=== PATIENT | female | born 2000 | race Two or more races ===

== ENCOUNTER 2024-11-15 21:14 | Observation (INO) | payer BC, SELFPAY ==
[2024-11-15 21:25] VITALS: BMI 38.7
[2024-11-15 21:38] VITALS: BP 132/88; PULSE 95; RESP 17; RESP 97; TEMP 36.8
[2024-11-15 21:57] VITALS: BP 122/74; PULSE 93
== END 2024-11-15 23:09 | disposition home or self-care (01) ==
PROVIDERS: Admitting Provider Specialist; Visit Provider Specialist
DX: O26.893 Other specified pregnancy related conditions, third trimester (principal); R10.30 Lower abdominal pain, unspecified; Z3A.40 40 weeks gestation of pregnancy
CPT/HCPCS: 59025; 59899

== ENCOUNTER 2024-11-20 11:17 | Inpatient (IN) | payer BC, SELFPAY ==
[2024-11-20] VITALS (183 sets, daily range): BP systolic 74–192; BP diastolic 39–112; PULSE 63–116; RESP 16–99; TEMP 36.6–36.9; O2SAT 90–100; BMI 38.9; BMI 39.1
[2024-11-20 11:51] LABS: Collection Type, Urine Clean Catch
[2024-11-20 12:04] LABS: ROM Kit Lot # 58102387
[2024-11-20 12:05] LABS: ROM Kit Exp Date# 11152027; ROM Swab Mixed By: SAUCT; Rupture of Fetal Membranes Negative (Negative); Swb Mxed in Solvent 1 min? Yes
[2024-11-20 12:08] LABS: Creatinine,Random Urine 166 mg/dL (30-125); Protein Total, Random Urine 36 mg/dL (1-14)
[2024-11-20 13:03] LABS: Basophils # (Auto) 0.0 Thou/mm3 (0.0-0.2); Basophils % (Auto) 0 % (0-2.5); Eosinophils # (Auto) 0.0 Thou/mm3 (0.0-0.5); Eosinophils % (Auto) 0 % (0-10); Hematocrit 35.9 % (36.0-46.0); Hemoglobin 12.5 g/dL (12.0-16.0); Immature Granulocytes Auto 0.05 Thou/mm3 (0.00-0.00); Lymphocytes # (Auto) 1.6 Thou/mm3 (1.0-4.8); Lymphocytes % (Auto) 18 % (10-50); Mean Corpuscular HGB Conc 34.8 g/dl (31.0-37.0); Mean Corpuscular Hemoglobin 30.6 pg (25.0-35.0); Mean Corpuscular Volume 88 fL (80-100); Monocytes # (Auto) 1.0 Thou/mm3 (0.0-0.8); Monocytes % (Auto) 11 % (0-12); Neutrophils # (Auto) 6.3 Thou/mm3 (1.8-7.7); Neutrophils % (Auto) 70 % (37-80); Nucleated Red Blood Cell # 0.00 Thou/mm3 (0.00-0.00); Nucleated Red Blood Cell % 0 /100 WBC (0); Platelet Count 208 Thou/mm3 (140-440); RDW Standard Deviation 47.9 fL (36.4-46.3); Red Blood Count 4.08 Miln/mm3 (4.00-5.20); White Blood Count 9.0 Thou/mm3 (3.6-11.0)
[2024-11-20 13:28] LABS: Fibrinogen 502 mg/dL (175-375); INR 0.9 (0.9-1.3); Partial Thromboplastin Time 25.8 Seconds (22.0-36.0); Prothrombin Time 10.2 Seconds (9.0-12.2)
[2024-11-20 13:41] LABS: Alanine Aminotransferase 9 U/L (10-49); Albumin, Serum 3.5 gm/dL (3.5-5.0); Albumin/Globulin Ratio 1.3 (1.2-2.2); Alkaline Phosphatase 181 U/L (46-116); Anion Gap 9 (7-16); Aspartate Amino Transferase 17 U/L (0-34); BUN/Creatinine Ratio 10 Ratio (12-20); Bilirubin,Total 0.5 mg/dL (0.3-1.2); Blood Urea Nitrogen 6 mg/dL (9-23); Calcium 8.6 mg/dL (8.3-10.6); Calcium (Corrected) 9.0 mg/dL (8.5-10.1); Carbon Dioxide 20.7 mMol/L (20.0-31.0); Chloride 110 mMol/L (98-107); Creatinine (Component) 0.6 mg/dL (0.6-1.3); Estimated Creatinine Clearance 171.8 mL/min (>60); Globulin 2.6 gm/dL (2.3-3.5); Glucose 86 mg/dL (74-106); Osmolality,Calculated 276 (275-295); Potassium 4.0 mMol/L (3.4-5.1); Sodium 140 mMol/L (136-145); Total Protein 6.1 gm/dL (5.7-8.2); Uric Acid 4.6 mg/dL (3.1-7.8); eGFR > 60 See Note
[2024-11-20 14:00] LABS: Bilirubin,Urine Negative (Negative); Blood,Urine Negative (Negative); Clarity,Urine Clear (Clear/Hazy); Color,Urine Yellow (Lt Yel-Yel); Glucose, Urine Negative (Negative); Ketones,Urine Negative (Negative); Leukocyte Esterase,Urine Negative (Negative); Nitrite,Urine Negative (Negative); PH,Urine 6.5 (5.0-7.0); Protein,Urine Trace (Neg - Trace); RBC,Urine 1 /hpf (0-3); Specific Gravity,Urine 1.027 (1.001-1.035); Squamous Epithelial Cell,Urine 4 /hpf (0-5); Urobilinogen,Urine Negative mg/dL (0.0-1.0); WBC,Urine 1 /hpf (0-5)
[2024-11-20] MEDS: RINGERS LACTATED 1000 ML 1,000 ML 100 ML IV ×3 (15:05→22:31)
--- NOTE | 2024-11-20 15:31 | PD.LDHP ---
Documentation for date of: 11/20/24 OB Labor/Induct. HPI History of Present Illness Chief complaint: labor pains beginning at 0500. : 1 Para: 0 Term pregnancies: 0 pregnancies: 0 Living children: 0 History of Abortions: Spontaneous and Elective: 0 History of Vaginal deliveries: 0 History of sections: No History of : No ILIR: 11/14/24 Gestational Age (weeks): 40 Gestational Age (days): 6 History of present illness: 24 y/o IUP 40w6d by best dates presents to MIU for contrations beginning at 0500. Denies any leaking or bleeding. Reports NL movement. care at [facility]. No problems . Reports labs wnl. Comments: Past medical history: Denies Past surgical history: Denies Family history: Breast cancer and diabetes mellitus Social history: Alcohol use prior to , marijuana use prior to No known drug allergies Food allergies include banana and avocado History of Present Dating criteria: based on 1st trimester US only Adequate Care: Yes Labs Labs: Positive: Group Beta Strep, Negative: RPR, Hepatitis B, Rubella Titre, HIV, Chlamydia and Gonorrhea and Unknown: Herpes Type 1, Herpes Type 2 and Covid-19 Review of Systems Review of Systems Narrative Review of Systems: Denies any chest pain palpitations cough fever shortness of breath or lower extremity pain Past Medical History Surgical History SURGICAL: Negative Section Meds Home Medications and Allergies Home Medications ?Medication ?Instructions ?Recorded ?Confirmed ?Type vits no.130-ferrous fum 1 tab PO QDAY 11/15/24 11/15/24 History 27 mg iron-folic acid 800 mcg tablet ( Vitamin) Allergies Allergy/AdvReac Type Severity Reaction Status Date / Time avocado Allergy Severe itching Verified 11/15/24 21:27 bannana Allergy Uncoded 11/15/24 21:27 OB Exam Physical Exam Vital signs: Temp Pulse Resp BP Pulse Ox 97.9 F 82 18 114/66 99 11/20/24 12:35 11/20/24 15:25 11/20/24 12:35 11/20/24 15:25 11/20/24 15:29 Routine Respiratory Exam Comments: Clear to auscultation bilateral Routine Cardiovascular Exam Comments: Regular rate and rhythm Routine Abdominal Exam Comments: Gravid consistent with estimated weight 8 lbs Detailed Labor and Delivery Exam Comments: See RN notes Routine Extremities Exam Comments: Nontender or edema Routine Back/Spine/Pelvis Exam Comments: No flank pain Routine Skin Exam Comments: No gross rashes or lesions OB Results Labs 11/20/24 12:27 11/20/24 12:27 Labs: Short CBC 11/20/24 Range/Units 12:27 WBC 9.0 (3.6-11.0) Thou/mm3 Hgb 12.5 (12.0-16.0) g/dL Hct 35.9 L (36.0-46.0) % Plt Count 208 (140-440) Thou/mm3 BMP 11/20/24 12:27 Sodium 140 Potassium 4.0 Chloride 110 H Carbon Dioxide 20.7 BUN 6 L Creatinine 0.6 Glucose 86 Calcium 8.6 Liver Function 11/20/24 Range/Units 12:27 Total Bilirubin 0.5 (0.3-1.2) mg/dL AST 17 (0-34) U/L ALT 9 L (10-49) U/L Alkaline Phosphatase 181 H (46-116) U/L Albumin 3.5 (3.5-5.0) gm/dL Urine 11/20/24 Range/Units 11:40 Urine Color Yellow (Lt Yel-Yel) Urine Clarity Clear (Clear/Hazy) Urine pH 6.5 (5.0-7.0) Ur Specific [place] 1.027 (1.001-1.035) Urine Protein Trace (Neg - Trace) Urine Glucose (UA) Negative (Negative) Impressions Impression: IUP at 40 weeks and 6 days Labor Anticipate spontaneous vaginal delivery Informed consent was obtained. The patient was made aware of the risk complications alternatives and benefits of operative vaginal delivery and delivery and agrees with these modes of delivery if indicated.
[2024-11-20 16:06] LABS: Syphilis Nonreactive (Nonreactive)
[2024-11-20] MEDS: Ampicillin Inj 2,000 MG in SODIUM CHLORIDE 0.9% (POP) 100 ML 200 MG IV (17:02)
[2024-11-20 19:39] LABS: Amphetamine/Metham Scrn,Ur OB Negative (Negative); Benzoylecgonine Screen, Ur OB Negative (Negative); Opiate Screen,Urine OB Negative (Negative); THC Screen,Urine OB Negative (Negative)
[2024-11-20] MEDS: Ampicillin Inj 1,000 MG in SODIUM CHLORIDE 0.9% (Popper) 50 ML 50 MG IV (21:07)
[2024-11-20] MEDS: OXYTOCIN in NS 30 units 30 UNIT/500 ML BAG IV (21:21)
[2024-11-21] VITALS (16 sets, daily range): BP systolic 124–147; BP diastolic 75–94; PULSE 82–108; RESP 16–20; TEMP 36.6–36.9; O2SAT 93–100
[2024-11-21] MEDS: ceFAZolin/D5W 2 GM IV 2 GM/100 ML BAG IV (00:13)
[2024-11-21] MEDS: FAMOTIDINE INJ 10 MG/ML VIAL 2 ML 20 MG IV (00:13)
--- NOTE | 2024-11-21 00:20 | PD.LDPN ---
Documentation for date of: 11/21/24 OB Labor Progress Note Pelvic Exam Dilation (cm): 6 Effacement (%): 100 station: 0 Amniotic membrane status: Ruptured Contractions Monitor mode: External Contraction frequency: 1-4 Contraction pattern: Coupling Contraction intensity: Moderate Status status: Category ll Assessment and Plan Comments: Failure to Progress Category 2 tracing with recurrent severe variable decelerations and prolonged decelerations. Delivery Informed consent obtained . The patient was made aware of the risks, complications, alternatives and benefits of the proposed C/S delivery and she agrees.
[2024-11-21] MEDS: Ampicillin Inj 1,000 MG in SODIUM CHLORIDE 0.9% (Popper) 50 ML 50 MG IV (00:42)
--- NOTE | 2024-11-21 01:10 | ESOP_ITS ---
Operative Note - ACCOUNT DEVELOPMENT EXECUTIVE Procedure Date of procedure: 11/21/24 Procedure Performed: Primary Low Transverse C/S via Pfanensteil Skin Incision Indication: IUP 41w0d Active Labor Failure to Progress Category II Tracing with recurrent severe variable decels and prolonged decels Pre-Op diagnosis: IUP 41w0d Active Labor Failure to Progress Category II Tracing with recurrent severe variable decels and prolonged decels Post-Op diagnosis: IUP 41w0d Active Labor Failure to Progress Category II Tracing with recurrent severe variable decels and prolonged decels Occiput posterior Nuchal cord tight x 2 Anesthesia type: Spinal Procedure description: After proper informed consent was obtained and the patient was made aware of the risks, complications, alternatives and benefits of the proposed procedure she was taken to the operating room where she underwent induction of spinal anesthesia. She was prepped and draped in the usual sterile fashion. A timeout was performed.? A Pfannenstiel skin incision was made with the scalpel and carried through to the underlying layer of fascia with the Bovie. The fascia was nicked in the midline incision and the incision was extended bilaterally with the Bovie. The inferior aspect of the fascial incision was grasped with Rodrigo clamps elevated and the underlying rectus muscle dissected off with the Bovie. The superior aspect the fascial incision was grasped with Rodrigo clamps elevated and the underlying rectus muscle dissected off with the Bovie. The rectus muscles were in the midline. The peritoneum was grasped between 2 Yarbrough clamps and entered sharply with the Metzenbaum scissors. The peritoneum was extended superiorly and inferiorly with good visualization of the bladder. The vesicouterine peritoneum was incised transversely and the bladder flap created digitally. A Areli blade was inserted. A low transverse incision was made in the uterus with a scapel and the incision was extended digitally. The infant's head delivered and the mouth and nose were suctioned with the bulb suction. The shoulder and body delivered atraumatically. The cord was clamped after 30 second delayed cord clamping and the cord was cut.? The infant was handed off to the waiting Pediatric staff, cord blood was collected for lab testing. The placenta was removed complete and intact. The uterus was exteriorized and cleared of all clots and debris. The uterine incision was closed with #1-0 chromic catgut suture in a running interlocking fashion. A second layer of the same suture was used to imbricate the first layer and obtain excellent hemostasis. The vesicouterine peritoneum was closed with 2-0 chromic catgut suture in a running fashion. The firm uterus was returned to the abdomen. The gutters were cleared of all clots and debris. The peritoneum was closed with 0 chromic catgut suture in running fashion. The rectus muscle was closed with 0 chromic catgut suture. The fascia was closed with 0 Vicryl beginning at each angle and ending in the center in a running fashion. The subcutaneous tissue was irrigated with warmed normal saline solution and found to be hemostatic. The subcutaneous tissue was closed with 2-0 chromic catgut suture in a running fashion. The skin was closed with 4-0 Monocryl. A Dermabond Prineo dressing was applied and a sterile pressure dressing was applied.? She tolerated the procedure well. Counts were correct. I discussed with the patient the nature of her condition, intra operative findings and expectation for recovery all? questions answered. Estimated blood loss (ml): 600 Findings: Viable Male Infant 8 and 9. Clear amniotic fluid Occiput posterior Nuchal cord tight x 2 Normal appearing uterus, ovaries and tubes. Complications: none Surgical staff Rohith Espinal OCCUPATIONAL HEALTH NURSING DIRECTOR Operation Date: 11/21/24 01:00 <No data on this case meets the specified criteria> Diagnosis Discharge Diagnosis (1) delivery delivered: Status: Acute Problem List Completed Was Problem List Reviewed/Reconciled?: Yes
--- NOTE | 2024-11-21 01:22 | ESDS_ITS ---
DS: Providers Provider Date of admission: 11/20/24 13:30 Primary care physician: Physician No Primary/Family Admitting Provider: Iván Pantoja MD Attending Provider on Admission: Iván Pantoja MD Attending Provider on DC: Iván Pantoja MD Discharging Provider: Iván Pantoja MD DS: Diagnosis Problem List Completed Was Problem List Reviewed/Reconciled?: Yes Summary/Hosp Course Brief History: 24 y/o IUP 40w6d by best dates presents to MIU for contrations beginning at 0500. Denies any leaking or bleeding. Reports NL movement. care at [facility]. No problems . Reports labs wnl. Peripartum Data Delivery Method: Low Transverse Episiotomy Description: None Procedures: Procedures Operation Date: 11/21/24 01:00 <No data on this case meets the specified criteria> Time Spent with Patient Time attestation: Total time spent providing and/or coordinating discharge services: Exam Vital Signs Temp Pulse Resp BP Pulse Ox O2 Del Method 98.2 F 93 18 129/86 H 99 Room Air 11/20/24 21:10 11/21/24 00:08 11/20/24 21:10 11/21/24 00:08 11/21/24 00:19 11/20/24 21:10 Discharge Plan Plan Patient Disposition: HOME (Self Care) Patient condition on transfer: Stable Prescriptions/Referrals Prescriptions/Med Rec: New hydrocodone-acetaminophen 5-325 mg tablet 1 tab PO Q6H MDD 4 PRN (Reason: pain) Qty: 20 0RF No Action Vitamin 27 mg iron- 800 mcg tablet 1 tab PO QDAY Referrals: No Primary/Family,Physician [Primary Care Provider] - Patient/Caregiver Discharge Instructions Discharge Activity: activity as tolerated Other Discharge Activity Instructions:: Follow up office 1 week. Education Materials: C Section Dc Print Language: Frisian Stand Alone Forms: Merle Award Info., Patient Portal Info Letter Planned Discharge Date 11/23/24
--- NOTE | 2024-11-21 01:47 | OBDSUM_ITS ---
Data (Green) Data Hx Section: No : 1 Term: 0 : 0 Livin Abortions: Spontaneous & Theraputic: 0 Delivery Data (Green) Labor Data Initiation of labor: Induction Induction/Augmentation Agent: Pitocin ROM date: 11/20/24 ROM time: 21:12 Amniotic membrane rupture type: Spontaneous Amniotic fluid description: Moderate Meconium Delivery Data EDC: 11/14/24 EDC calculated by:: LMP/early US confirmation Onset of labor date: 11/20/24 Onset of labor time: 15:00 Complete dilation date: 11/21/24 Complete dilation time: 00:44 delivery date: 11/21/24 Industry delivery time: 00:44 Gestational age (weeks): 41 Gestational age (days): 0 Placenta delivery date: 11/21/24 Placenta delivery time: 00:45 Stage 1 total time: Labor - Stage 1 Duration 9 hours and 44 minutes Delivered by: geiling Delivery nurse: bar Thurston nurse: sudeep ceballos Oncology Technician at delivery: Yes Support person(s) at delivery: father of baby Other staff at delivery: see orm Delivery Method Delivery method: Low Transverse Presentation: Vertex position: OP Anesthesia Type Anesthesia Type: Epidural Anesthesia type: Spinal Placenta Placenta delivery description: Manual Removal Cord blood sent to lab: Yes cord blood collection: Cord Blood Type, Arterial Cord Blood Gas and Venous Cord Blood Gas Episiotomy Episiotomy description: None EBL Estimated blood loss (ml): 600 Umbilical Cord cord description: 3 Vessels and Nuchal Cord Complications Complications: None Industry Data (Green) Industry Data order: 1 Industry's gender: Male weight (gms): 7 lb 11.106 oz Weight (pounds): 7 lbs and 11.1 ozs 1 minute: 8 5 minutes: 9 10 minutes: 9
[2024-11-21] MEDS: OXYTOCIN in NS 20 units 20 UNIT/1,000 ML BAG 125 UNIT IV ×2 (02:34→10:52)
[2024-11-21] MEDS: KETOROLAC INJ 30 MG/ML VIAL IVP ×2 (03:12→12:13)
[2024-11-21] MEDS: DOCUSATE SOD 100 MG CAPSULE PO (08:58)
[2024-11-21] MEDS: ceFAZolin/D5W 2 GM IV 2 G/100 ML BAG IV ×2 (08:58→16:45)
--- NOTE | 2024-11-21 09:15 | PC.SS ---
MANAGER TECHNICAL attempted to conduct bedside visit with the patient. Bedside visit cancelled due to patient breast feeding . MANAGER TECHNICAL to attempt at later time.
[2024-11-21 09:19] LABS: Basophils # (Auto) 0.0 Thou/mm3 (0.0-0.2); Basophils % (Auto) 0 % (0-2.5); Eosinophils # (Auto) 0.0 Thou/mm3 (0.0-0.5); Eosinophils % (Auto) 0 % (0-10); Hematocrit 32.7 % (36.0-46.0); Hemoglobin 11.3 g/dL (12.0-16.0); Immature Granulocytes Auto 0.06 Thou/mm3 (0.00-0.00); Lymphocytes # (Auto) 1.5 Thou/mm3 (1.0-4.8); Lymphocytes % (Auto) 12 % (10-50); Mean Corpuscular HGB Conc 34.6 g/dl (31.0-37.0); Mean Corpuscular Hemoglobin 30.1 pg (25.0-35.0); Mean Corpuscular Volume 87 fL (80-100); Monocytes # (Auto) 0.8 Thou/mm3 (0.0-0.8); Monocytes % (Auto) 7 % (0-12); Neutrophils # (Auto) 9.6 Thou/mm3 (1.8-7.7); Neutrophils % (Auto) 80 % (37-80); Nucleated Red Blood Cell # 0.00 Thou/mm3 (0.00-0.00); Nucleated Red Blood Cell % 0 /100 WBC (0); Platelet Count 188 Thou/mm3 (140-440); RDW Standard Deviation 48.7 fL (36.4-46.3); Red Blood Count 3.75 Miln/mm3 (4.00-5.20); White Blood Count 12.0 Thou/mm3 (3.6-11.0)
--- NOTE | 2024-11-21 16:43 | PC.SS ---
TREASURER attempted to meet with patient to address nursing referral. Patient not present, in NICU with infant.
[2024-11-22 00:05] VITALS: BP 137/79; PULSE 83; RESP 18; TEMP 36.9; O2SAT 96
[2024-11-22] MEDS: ceFAZolin/D5W 2 GM IV 2 G/100 ML BAG IV (00:23)
--- NOTE | 2024-11-22 06:44 | ESPR_ITS ---
RE: CLAUDIA SLATER : 2000 DATE OF SERVICE: 11/22/2024 S: Postop day #1, the patient denies any problem or complaints. She is voiding. She is ambulating. She is tolerated regular diet. She is passing flatus. She denies any excessive vaginal bleeding. She denies any dizziness or lightheadedness. She denies any chest pain, palpitations, shortness of breath, or lower extremity pain. O: Vital Signs: Blood pressure 137/79, heart rate 83, respirations 18, temperature is 98.5, and pulse ox is 96% on room air. Lungs: Clear to auscultation bilaterally. Heart: Regular rate and rhythm. Abdomen: Dressing dry and intact. Fundus is firm. Extremities: Nontender. LABORATORY DATA: Hemoglobin pre-delivery is 12.5, post-delivery is 11.3. A: Postoperative day #1, status post delivery. P: Remove dressing, encourage ambulation, support, possible discharge home tomorrow. DT: 06:19:35 TT: 06:42:00 Ref: [id number] - TID: [id number]
[2024-11-22] MEDS: IBUPROFEN TAB 400 MG TABLET 800 MG PO (08:00)
[2024-11-22] MEDS: DOCUSATE SOD 100 MG CAPSULE PO (08:02)
[2024-11-22] MEDS: ENOXAPARIN SOD INJ 40 MG/0.4 ML SYRINGE SC (08:02)
[2024-11-22 08:15] VITALS: BP 135/87; PULSE 98; RESP 17; TEMP 36.7; O2SAT 97
[2024-11-22 11:00] VITALS: BP 135/78; PULSE 94; RESP 20; TEMP 36.6; O2SAT 96
--- NOTE | 2024-11-22 11:55 | PC.SS ---
THEORETICAL PHYSICIST conducted bedside contact with the patient to address nursing referral indicating patient possessed history of THC use.? THEORETICAL PHYSICIST introduced self and role.? At bedside with patient was Jack WAY.? Patient gave permission for FOB to be present during discussion.? Patient confirmed past history of THC use.? Patient shared that THC used prior to confirmation of .? Patient informed THEORETICAL PHYSICIST that upon confirmation use ceased.? Patient reports no plans to engage in THC use.? Toxicology report upon admission negative.? Infant, Jack; is the patient?s first child.? Infant delivered via .? Patient plans on combo feeding .? OB services provided by [facility].? Patient reports consistency with OB appointments.? Patient is receiving WIC.? Patient is not aligned with SNAP or TANF.? Patient is employed at [email or web address] Patient denies history of alcohol/drug use.? Patient denies episodes of domestic violence.? Patient denies history of CWS intervention.? Patient denies history of mental health services.? Patient has access to appropriate supplies, car seat and equipment.? FOB will provide transportation upon discharge.? Patient describes possessing support system consisting of FOB and parents.? THEORETICAL PHYSICIST provided community resources to include [facility] [employer] and [facility].? No further intervention required at this time, older adult social work specialist will be available to address any further concerns.? THEORETICAL PHYSICIST updated bedside nurse.?
[2024-11-22 20:00] VITALS: BP 141/90; PULSE 94; RESP 18; TEMP 36.7; O2SAT 96
[2024-11-23] MEDS: IBUPROFEN TAB 400 MG TABLET 800 MG PO ×2 (03:42→14:31)
[2024-11-23 04:00] VITALS: BP 136/83; PULSE 87; RESP 18; TEMP 36.7; O2SAT 98
--- NOTE | 2024-11-23 07:55 | PD.LDPPPRG ---
Subjective Subjective Interval history: Delivery type: for failure to progress Patient doing well this morning. No acute complaints. Ambulating, tolerating p.o. and voiding without difficulty. HTN/Pre-Eclampsia screen: No chest pain, shortness of breath, headache, visual changes, epigastric or right upper quadrant pain. Breast-feeding, lochia diminishing. Bowel: Flatus+/ BM+ Exam Vital Signs Temp Pulse Resp BP Pulse Ox O2 Del Method 98.1 F 87 18 136/83 H 98 Room Air 11/23/24 04:00 11/23/24 04:00 11/23/24 04:00 11/23/24 04:00 11/23/24 04:00 11/23/24 04:00 Constitutional Constitutional: no acute distress Routine HEENT Exam Head: Present normocephalic and atraumatic Eye: Present EOMI and PERRL ENT: Present mucous membranes moist Routine Neck Exam Neck: Present supple and trachea midline Routine Respiratory Exam Respiratory: Present chest non-tender, lungs clear, normal breath sounds and no resp distress Routine Cardiovascular Exam Cardiovascular: Present RRR Routine Abdominal Exam Abdominal: Present soft and normoactive bowel sounds Routine Extremities Exam Extremities: Present full ROM Routine Skin Exam Skin: Present intact, dry and warm Routine Neurological Exam Neurological: Present alert, oriented X3 and CN II-XII intact Routine Psychiatric Exam Psychiatric: Present normal affect and normal thought process Objective Labs 11/21/24 07:48 11/20/24 12:27 Assessment & Plan Problem List (1) delivery delivered: Status: Acute Assessment and plan: PPD/POD#2 1. Continue routine care 2. Transition to PO meds. 3. Encourage to ambulate/ breast-feed 4. Anticipate discharge home today. Time Spent With Patient Time: Total time spent is greater than 50% in coordination of care (as documented) at patient's floor/unit and/or counseling patient:
--- NOTE | 2024-11-23 07:59 | ESDS_ITS ---
DS: Providers Provider Date of admission: 11/20/24 13:30 Primary care physician: Physician No Primary/Family Admitting Provider: Iván Pantoja MD Attending Provider on Admission: Connor Tsai MD Consults: 11/21/24 02:25 Referral Routine Comment: Attending Provider on DC: Connor Tsai MD Discharging Provider: Connor Tsai MD DS: Diagnosis Discharge Diagnosis (1) delivery delivered: Status: Acute (2) Arrest of dilation, delivered, current hospitalization: Status: Acute (3) Occiput posterior presentation of fetus: Status: Acute (4) Nuchal cord affecting delivery: Status: Acute Problem List Completed Was Problem List Reviewed/Reconciled?: Yes Summary/Hosp Course Brief History: 24 y/o IUP 40w6d by best dates presents to MIU for contrations beginning at 0500. Denies any leaking or bleeding. Reports NL movement. care at [facility]. No problems . Reports labs wnl. Peripartum Data Delivery Method: Low Transverse Episiotomy Description: None Procedures: Procedures Operation Date: 11/21/24 00:30 Actual Procedure Side Surgeon p in OB Iván Pantoja MD Time Spent with Patient Time attestation: Total time spent providing and/or coordinating discharge services: Exam Vital Signs Temp Pulse Resp BP Pulse Ox O2 Del Method 98.1 F 87 18 136/83 H 98 Room Air 11/23/24 04:00 11/23/24 04:00 11/23/24 04:00 11/23/24 04:00 11/23/24 04:00 11/23/24 04:00 Discharge Plan Plan Patient Disposition: HOME (Self Care) Patient condition on transfer: Stable Prescriptions/Referrals Prescriptions/Med Rec: New hydrocodone-acetaminophen 5-325 mg tablet 1 tab PO Q6H MDD 4 PRN (Reason: pain) Qty: 20 0RF ibuprofen 800 mg tablet 800 mg PO Q6H PRN (Reason: pain) Qty: 30 0RF Continued Vitamin 27 mg iron- 800 mcg tablet 1 tab PO QDAY Referrals: No Primary/Family,Physician [Primary Care Provider] - Patient/Caregiver Discharge Instructions Discharge Activity: activity as tolerated Other Discharge Activity Instructions:: Follow up office 1 week. Education Materials: C Section Dc Print Language: Turkish Stand Alone Forms: Merle Award Info., Patient Portal Info Letter, DC from Surgery Discharge Order Discharge Orders: Discharge (Routine); Ordered 11/23/24 Ordered By: Connor Tsai Planned Discharge Date 11/23/24
[2024-11-23 08:00] VITALS: BP 133/83; PULSE 91; RESP 18; TEMP 36.9; O2SAT 96
--- NOTE | 2024-11-23 08:01 | PD.LDPPPRG ---
Subjective Subjective Interval history: Delivery type: Patient doing well this morning. No acute complaints. Ambulating, tolerating p.o. and voiding without difficulty. HTN/Pre-Eclampsia screen: No chest pain, shortness of breath, headache, visual changes, epigastric or right upper quadrant pain. Breast-feeding, lochia diminishing. Bowel: Flatus+/ BM+ Exam Vital Signs Temp Pulse Resp BP Pulse Ox O2 Del Method 98.1 F 87 18 136/83 H 98 Room Air 11/23/24 04:00 11/23/24 04:00 11/23/24 04:00 11/23/24 04:00 11/23/24 04:00 11/23/24 04:00 Constitutional Constitutional: no acute distress Routine HEENT Exam Head: Present normocephalic and atraumatic Eye: Present EOMI and PERRL ENT: Present mucous membranes moist Routine Neck Exam Neck: Present supple and trachea midline Routine Respiratory Exam Respiratory: Present chest non-tender, lungs clear, normal breath sounds and no resp distress Routine Cardiovascular Exam Cardiovascular: Present RRR Routine Abdominal Exam Abdominal: Present soft and normoactive bowel sounds Routine Extremities Exam Extremities: Present full ROM Routine Skin Exam Skin: Present intact, dry and warm Routine Neurological Exam Neurological: Present alert, oriented X3 and CN II-XII intact Routine Psychiatric Exam Psychiatric: Present normal affect and normal thought process Objective Labs 11/21/24 07:48 11/20/24 12:27 Assessment & Plan Problem List (1) delivery delivered: Status: Acute Assessment and plan: 1. Continue routine /post-op care 2. Labs reviewed, cbc appropriate 3. Remove dressing/Diaz 4. Encourage to ambulate, shower 5. Encourage PO intake, breast feeding (2) Arrest of dilation, delivered, current hospitalization: Status: Acute (3) Occiput posterior presentation of fetus: Status: Acute (4) Nuchal cord affecting delivery: Status: Acute Time Spent With Patient Time: Total time spent is greater than 50% in coordination of care (as documented) at patient's floor/unit and/or counseling patient:
[2024-11-23] MEDS: DOCUSATE SOD 100 MG CAPSULE PO (09:34)
[2024-11-23] MEDS: ENOXAPARIN SOD INJ 40 MG/0.4 ML SYRINGE SC (09:34)
[2024-11-23 11:30] VITALS: BP 145/91; PULSE 90; RESP 18; TEMP 37.1; O2SAT 95
[2024-11-23 13:40] LABS: Collection Type, Urine Clean Catch
[2024-11-23 13:43] LABS: Basophils # (Auto) 0.0 Thou/mm3 (0.0-0.2); Basophils % (Auto) 0 % (0-2.5); Eosinophils # (Auto) 0.2 Thou/mm3 (0.0-0.5); Eosinophils % (Auto) 1 % (0-10); Hematocrit 34.0 % (36.0-46.0); Hemoglobin 11.4 g/dL (12.0-16.0); Immature Granulocytes Auto 0.09 Thou/mm3 (0.00-0.00); Lymphocytes # (Auto) 1.8 Thou/mm3 (1.0-4.8); Lymphocytes % (Auto) 14 % (10-50); Mean Corpuscular HGB Conc 33.5 g/dl (31.0-37.0); Mean Corpuscular Hemoglobin 30.5 pg (25.0-35.0); Mean Corpuscular Volume 91 fL (80-100); Monocytes # (Auto) 1.1 Thou/mm3 (0.0-0.8); Monocytes % (Auto) 8 % (0-12); Neutrophils # (Auto) 9.8 Thou/mm3 (1.8-7.7); Neutrophils % (Auto) 76 % (37-80); Nucleated Red Blood Cell # 0.00 Thou/mm3 (0.00-0.00); Nucleated Red Blood Cell % 0 /100 WBC (0); Platelet Count 214 Thou/mm3 (140-440); RDW Standard Deviation 52.0 fL (36.4-46.3); Red Blood Count 3.74 Miln/mm3 (4.00-5.20); White Blood Count 13.0 Thou/mm3 (3.6-11.0)
[2024-11-23 13:44] LABS: Bilirubin,Urine Negative (Negative); Blood,Urine 3+ (Negative); Clarity,Urine Clear (Clear/Hazy); Color,Urine Yellow (Lt Yel-Yel); Glucose, Urine Negative (Negative); Ketones,Urine Negative (Negative); Leukocyte Esterase,Urine Positive (Negative); Nitrite,Urine Negative (Negative); PH,Urine 6.0 (5.0-7.0); Protein,Urine Trace (Neg - Trace); RBC,Urine 194 /hpf (0-3); Specific Gravity,Urine 1.016 (1.001-1.035); Squamous Epithelial Cell,Urine 5 /hpf (0-5); Urobilinogen,Urine 3.0 mg/dL (0.0-1.0); WBC,Urine 52 /hpf (0-5)
[2024-11-23 13:57] LABS: Alanine Aminotransferase 11 U/L (10-49); Albumin, Serum 3.5 gm/dL (3.5-5.0); Albumin/Globulin Ratio 1.3 (1.2-2.2); Alkaline Phosphatase 134 U/L (46-116); Anion Gap 10 (7-16); Aspartate Amino Transferase 19 U/L (0-34); BUN/Creatinine Ratio 12 Ratio (12-20); Bilirubin,Total 0.5 mg/dL (0.3-1.2); Blood Urea Nitrogen 11 mg/dL (9-23); Calcium 8.6 mg/dL (8.3-10.6); Calcium (Corrected) 9.0 mg/dL (8.5-10.1); Carbon Dioxide 23.7 mMol/L (20.0-31.0); Chloride 109 mMol/L (98-107); Creatinine (Component) 0.9 mg/dL (0.6-1.3); Estimated Creatinine Clearance 114.8 mL/min (>60); Globulin 2.6 gm/dL (2.3-3.5); Glucose 92 mg/dL (74-106); Osmolality,Calculated 284 (275-295); Potassium 3.8 mMol/L (3.4-5.1); Sodium 143 mMol/L (136-145); Total Protein 6.1 gm/dL (5.7-8.2); Uric Acid 6.2 mg/dL (3.1-7.8); eGFR > 60 See Note
[2024-11-23 14:03] LABS: INR 0.9 (0.9-1.3); Partial Thromboplastin Time 29.1 Seconds (22.0-36.0); Prothrombin Time 10.1 Seconds (9.0-12.2)
[2024-11-23 14:07] LABS: Fibrinogen 724 mg/dL (175-375)
[2024-11-23 14:30] VITALS: BP 138/83
[2024-11-23 15:21] VITALS: BP 131/87; PULSE 89; RESP 18; TEMP 37; O2SAT 97
== END 2024-11-23 17:04 | disposition home or self-care (01) | DRG 788 ==
LOC: S4SX 11-21 00:09 → S4NX 11-21 00:47
PROVIDERS: Admitting Provider Specialist; Visit Provider Obstetrics & Gynecology
PROC: 10D00Z1 Extraction of Products of Conception, Low, Open Approach (ICD-10-PCS; CPT 59514; principal; 2024-11-21 00:45)
DX: O48.0 Post-term pregnancy (principal); Z37.0 Single live birth; O76 Abnormality in fetal heart rate and rhythm complicating labor and delivery; O69.1XX0 Labor and delivery complicated by cord around neck, with compression, not applicable or unspecified; O62.2 Other uterine inertia; O77.0 Labor and delivery complicated by meconium in amniotic fluid; Z3A.41 41 weeks gestation of pregnancy; O62.0 Primary inadequate contractions
CPT/HCPCS: 36415; 59025; 59409; 80053; 80307; 81001; 82570; 84112; 84156; 84550; 85025; 85384; 85610; 85730; 86780; 86850; 86900; 86901; 90707; 94762; J0290; J0689; J1650; J1885; J2250; J2274; J2590; J2704; J2795; J3010; J3490; J7050; J7120; A9270; J2270

== ENCOUNTER 2024-11-30 14:33 | Emergency (ER) | payer BC, SELFPAY ==
[2024-11-30 14:34] VITALS: BMI 39.4
[2024-11-30 14:53] VITALS: BP 137/91; PULSE 104; RESP 19; TEMP 37.3; O2SAT 98
--- NOTE | 2024-11-30 14:59 | EDNOTE_ITS ---
ED Wound/Laceration-RME/HPI General Chief Complaint: Wound/Laceration Stated Complaint: C-SEC WOUND OPENED BLEEDING 11/21 Time Seen by Provider: 11/30/24 14:40 Arrival date/time: 11/30/24 14:33 24-year-old female with no significant medical problems presents to the emergency department today stating that she had a on 11/21 here at the hospital with Dr Pantoja patient reports that she noted some drainage from the site Limitations: no limitations Related Data Home Medications ?Medication ?Instructions ?Recorded ?Confirmed vits no.130-ferrous fum 1 tab PO QDAY 5 11/15/24 27 mg iron-folic acid 800 mcg tablet ( Vitamin) Previous Rx's ?Medication ?Instructions ?Recorded hydrocodone 5 mg-acetaminophen 325 1 tab PO Q6H PRN pa in #20 tabs 11/21/24 mg tablet ibuprofen 800 mg tablet 800 mg PO Q6H PRN pain #30 t abs 11/22/24 Allergies Allergy/AdvReac Type Severity Reaction Status Date / Time avocado Allergy Severe itching Verified 11/30/24 14:36 banana Allergy Unknown Verified 11/30/24 14:36 Review of Systems Review of Systems Systems Reviewed: All systems reviewed, normal except as documented Constitutional Constitutional: Reports system reviewed and no additional complaints, except as documented, Denies fever(s) and Denies headache(s) Eyes Eyes: Reports system reviewed and no additional complaints, except as documented and Denies blurry vision ENT Ears, Nose, Mouth, and Throat: Reports system reviewed and no additional complaints, except as documented, Denies headache(s), Denies nasal congestion and Denies nasal discharge Cardiovascular Cardiovascular: Reports system reviewed and no additional complaints, except as documented, Denies chest pain and Denies dyspnea Respiratory Respiratory: Reports system reviewed and no additional complaints, except as documented, Denies chest congestion, Denies cough and Denies dyspnea Gastrointestinal Gastrointestinal: Reports system reviewed and no additional complaints, except as documented and Denies abdominal pain Integumentary/Breasts Skin/Breast: Reports system reviewed and no additional complaints, except as documented, Denies rash and Reports wounds (Wound dehiscence wound) Neurologic Neurologic: Reports system reviewed and no additional complaints, except as documented, Reports as per HPI and Denies headache(s) Past Medical History Past Medical History NEUROLOGIC: Negative Neurological Disorders or Seizures CARDIAC: Negative Cardiac Disorders or Congestive Heart Failure RESPIRATORY: Negative Chronic Obstructive Pulmonary Disease (COPD) GASTROINTESTINAL: Negative Gastrointestinal Disorders GENITOURINARY: Negative Genitourinary Disorders or Renal Disease REPRODUCTIVE: Negative Pelvic Inflammatory Disease or Previous Pregnancies MUSCULOSKELETAL: Negative Musculoskeletal Disorders ENDOCRINE: Negative Endocrine Disorders, Diabetes Mellitus Type 1 or Diabetes Mellitus Type 2 HEMATOLOGIC: Negative Blood Disorders or Anemia OTHER HISTORY: Negative Autoimmune Disease, Blood Transfusions, Blood Transfusion Reaction, Anesthesia Reactions, Organ Transplant, MRSA, Clostridium Difficile or Cancer Family History FAMILY HISTORY: Positive Family Cardiac Disorders (Dad HTN); Negative Family Cancer, Family Surgery or Family Anesthesia Reaction Surgical History SURGICAL: Negative Section or Organ Transplant Social History SMOKING STATUS: Never smoker ED Exam General Limitations: Present no limitations General appearance: Present alert and in no apparent distress Head Head exam: Present atraumatic, normocephalic and normal inspection Eye Eye exam: Present normal appearance, PERRL and EOMI; Absent conjunctival injection ENT ENT exam: Present normal exam, normal oropharynx and mucous membranes moist Neck Neck exam: Present normal inspection, full ROM and trachea midline Chest Chest inspection: Present normal inspection and symmetric chest wall rise Respiratory Respiratory exam: Present normal lung sounds bilaterally; Absent respiratory distress Cardiovascular Cardiovascular exam: Present regular rate, normal rhythm and normal heart sounds Abdominal Exam Abdominal exam: Present soft and normal bowel sounds Extremities Exam Extremities exam: Present normal inspection and full ROM Back Exam Back exam: Present normal inspection and full ROM Neurological Exam Neurological exam: Present alert, oriented X3 and CN II-XII intact Psychiatric Psychiatric exam: Present normal affect and normal mood Skin Skin exam: Present warm, dry and other (Small wound dehiscence site) Course Quality Measures none Vital Signs Vital signs: Vital Signs Temperature 99.1 F 11/30/24 14:53 Pulse Rate 104 H 11/30/24 14:53 Respiratory Rate 19 11/30/24 14:53 Blood Pressure 137/91 H 11/30/24 14:53 Pulse Oximetry (%) 98 11/30/24 14:53 Oxygen Delivery Method Room Air 11/30/24 14:53 O2 saturation 98% room air WNL Wound / Laceration MDM Narrative MDM Narrative:: 24-year-old female with no significant medical problems presents to the emergency department today stating that she had a on 11/21 here at the hospital with Dr Pantoja patient reports that she noted some drainage from the site On exam patient does have what appears to be a small wound dehiscence I do not appreciate any hematoma or fluid collection no foul odor I do not believe it is infected at this time Consultation: I spoke with Dr Pantoja who states he can see the patient's office tomorrow between 8 and 10 AM Explained to the patient she should go to Dr Pantoja's office tomorrow after worsening symptoms return immediately patient amenable to this plan Patient data External records reviewed:: [facility] previous records Clinical information provided by:: patient Social determinants that could affect healthcare access:: none Patient has the following chronic illnesses:: None How is presenting disease/condition affected by chronic disease/condition?: no chronic disease Evaluation data The following diagnostics were reviewed and interpreted by me:: other (specify) (N/A) Lab and/or radiology exams considered but not ordered:: Consider not ordered Interpretation Summary: N/A Medications / Prescriptions Medications or Prescriptions considered but not ordered:: Given no meds Medication administrations:: Given no meds Consultations Consultation(s) initiated? (list below): Yes Consultation #1 (Physician, Specialty, Details): Dr Pantoja Diagnosis Wound Differential Diagnosis: laceration, abscess and abrasion Most likely diagnosis given after review of the tests above:: Wound dehiscence Admission Indicated Admission indicated?: not indicated Admission Request Was there a request for admission?: No Disposition Plan Disposition Plan: Discharge Discharge Attestation Discharge Attestation: The patient and all family members were given an opportunity to ask questions and understood the discharge instructions. Discharge instructions specifically effects, indications for sooner follow up or return to the emergency department, and the expected course of current diagnosis. Patient condition: Stable Discharge Plan Plan Patient Disposition: HOME (Self Care) Discharge Disposition comment: Stable Prescriptions/Referrals Prescriptions/Med Rec: No Action Vitamin 27 mg iron- 800 mcg tablet 1 tab PO QDAY hydrocodone-acetaminophen 5-325 mg tablet 1 tab PO Q6H MDD 4 PRN (Reason: pain) Qty: 20 0RF ibuprofen 800 mg tablet 800 mg PO Q6H PRN (Reason: pain) Qty: 30 0RF Referrals: Iván Pantoja MD [Physician] - 12/01/24 9:00 am Problem List Clinical Impression: Dehiscence of section wound, Patient/Caregiver Discharge Instructions Additional Instructions: Please follow-up with Dr Pantoja tomorrow at 9 AM for worsening symptoms return immediately Print Language: Portuguese Stand Alone Forms: [employer] Award Info., Patient Portal Info Letter PA/MANAGEMENT ARCHITECT Supervising Physician PA/MANAGEMENT ARCHITECT Supervising Physician: Dr. davis
== END 2024-11-30 15:06 | disposition home or self-care (01) ==
LOC: SERX 15:04
PROVIDERS: Emergency Provider Family Medicine; PCP Family Medicine
DX: O90.0 Disruption of cesarean delivery wound (principal)
CPT/HCPCS: 99283

== ENCOUNTER 2024-12-01 09:10 | Emergency (ER) | payer BC, SELFPAY ==
[2024-12-01 09:56] VITALS: BP 150/95; PULSE 81; RESP 17; TEMP 36.7; O2SAT 97; BMI 38.6
--- NOTE | 2024-12-01 09:56 | PD.EDWOUND ---
ED Wound/Laceration-RME/HPI General Chief Complaint: Wound/Laceration Stated Complaint: incision is bleeding Time Seen by Provider: 12/01/24 09:57 Source: patient Arrival date/time: 12/01/24 09:10 24-year-old female with no known medical history presents to the emergency room with a chief complaint of bleeding from her incision site. Patient had a done on November 21, 2024. Mode of arrival: ambulatory Limitations: no limitations Related Data Home Medications ?Medication ?Instructions ?Recorded ?Confirmed vits no.130-ferrous fum 1 tab PO QDAY 11/15/24 11/15/24 27 mg iron-folic acid 800 mcg tablet ( Vitamin) Previous Rx's ?Medication ?Instructions ?Recorded hydrocodone 5 mg-acetaminophen 325 1 tab PO Q6H PRN pain #20 tabs 11/21/24 mg tablet ibuprofen 800 mg tablet 800 mg PO Q6H PRN pain #30 tabs 11/22/24 cephalexin 500 mg capsule 500 mg PO BID 7 days #14 caps 12/01/24 Allergies Allergy/AdvReac Type Severity Reaction Status Date / Time avocado Allergy Severe itching Verified 12/01/24 09:16 banana Allergy Unknown Verified 12/01/24 09:16 Review of Systems Review of Systems Systems Reviewed: All systems reviewed, normal except as documented Constitutional Constitutional: Reports system reviewed and no additional complaints, except as documented, Denies fatigue, Denies fever(s), Denies headache(s) and Denies weakness Eyes Eyes: Reports system reviewed and no additional complaints, except as documented, Denies blurry vision and Denies change in vision ENT Ears, Nose, Mouth, and Throat: Reports system reviewed and no additional complaints, except as documented, Denies otalgia, Denies headache(s), Denies nasal congestion, Denies throat swelling and Denies vertigo Cardiovascular Cardiovascular: Reports system reviewed and no additional complaints, except as documented, Denies chest pain, Denies dyspnea and Denies dyspnea on exertion Respiratory Respiratory: Reports system reviewed and no additional complaints, except as documented, Denies chest congestion, Denies cough, Denies dyspnea, Denies dyspnea on exertion and Denies wheezing Gastrointestinal Gastrointestinal: Reports system reviewed and no additional complaints, except as documented, Denies abdominal pain, Denies cramping, Denies nausea and Denies vomiting Genitourinary Genitourinary: Reports system reviewed and no additional complaints, except as documented Musculoskeletal Musculoskeletal: Reports system reviewed and no additional complaints, except as documented and Denies back pain Integumentary/Breasts Skin/Breast: Reports system reviewed and no additional complaints, except as documented, Reports erythema and Reports wounds Neurologic Neurologic: Reports system reviewed and no additional complaints, except as documented, Denies confusion, Denies headache(s), Denies lack of coordination, Denies vertigo and Denies weakness Psychiatric Psychiatric: Reports system reviewed and no additional complaints, except as documented, Denies anxiety, Denies confusion, Denies depression, Denies paranoia, Denies suicidal ideation and Denies tactile hallucinations Endocrine Endocrine: Reports system reviewed and no additional complaints, except as documented and Denies fatigue Hematologic/Lymphatic Hematologic/Lymphatic: Reports system reviewed and no additional complaints, except as documented and Denies lymphadenopathy Allergic/Immunologic Allergic/Immunologic: Reports system reviewed and no additional complaints, except as documented, Denies throat swelling, Denies urticaria and Denies wheezing Past Medical History Past Medical History NEUROLOGIC: Negative Neurological Disorders or Seizures CARDIAC: Negative Cardiac Disorders or Congestive Heart Failure RESPIRATORY: Negative Chronic Obstructive Pulmonary Disease (COPD) GASTROINTESTINAL: Negative Gastrointestinal Disorders GENITOURINARY: Negative Genitourinary Disorders or Renal Disease REPRODUCTIVE: Negative Pelvic Inflammatory Disease or Previous Pregnancies MUSCULOSKELETAL: Negative Musculoskeletal Disorders ENDOCRINE: Negative Endocrine Disorders, Diabetes Mellitus Type 1 or Diabetes Mellitus Type 2 HEMATOLOGIC: Negative Blood Disorders or Anemia OTHER HISTORY: Negative Autoimmune Disease, Blood Transfusions, Blood Transfusion Reaction, Anesthesia Reactions, Organ Transplant, MRSA, Clostridium Difficile or Cancer Family History FAMILY HISTORY: Positive Family Cardiac Disorders (Dad HTN); Negative Family Cancer, Family Surgery or Family Anesthesia Reaction Surgical History SURGICAL: Negative Section or Organ Transplant Social History SMOKING STATUS: Never smoker ED Exam General Limitations: Present no limitations General appearance: Present alert and in no apparent distress Head Head exam: Present atraumatic Eye Eye exam: Present normal appearance, PERRL and EOMI ENT ENT exam: Present normal exam, normal oropharynx and mucous membranes moist Neck Neck exam: Present normal inspection, full ROM and trachea midline Chest Chest inspection: Present normal inspection and symmetric chest wall rise Respiratory Respiratory exam: Present normal lung sounds bilaterally Cardiovascular Cardiovascular exam: Present regular rate, normal rhythm and normal heart sounds Abdominal Exam Abdominal exam: Present soft, tenderness, normal bowel sounds and incision Abdominal tenderness: Present suprapubic and mild Extremities Exam Extremities exam: Present normal inspection and full ROM Back Exam Back exam: Present normal inspection and full ROM Neurological Exam Neurological exam: Present alert, oriented X3 and CN II-XII intact Psychiatric Psychiatric exam: Present normal affect and normal mood Skin Skin exam: Present warm, dry, intact and normal color Expanded Skin Exam Type of lesion: Present laceration and other ( sutures) Distribution: Present abdomen Description: Present tenderness and discharge Body image:  1. There is a 0.5 cm area on her sutures that is bleeding. The area is not erythemic it is not warm to the touch and there are no signs of any infection. There is no pus drainage there is only blood and serosanguineous fluid Course Quality Measures none Orders Category Date Time Status Set Up Suture Tray STAT Care 12/01/24 09:54 Active Wound Care NOW Care 12/01/24 09:54 Active Lidocaine 1% 20 ml [Xylocaine 1% 20 ML] Med 12/01/24 09:54 Discontinued 20 ml INFL X1 ONE Vital Signs Vital signs: Vital Signs Temperature 98.1 F 12/01/24 09:56 Pulse Rate 81 12/01/24 09:56 Respiratory Rate 17 12/01/24 09:56 Blood Pressure 150/95 H 12/01/24 09:56 Pulse Oximetry (%) 97 12/01/24 09:56 Oxygen Delivery Method Room Air 12/01/24 09:56 PROCEDURES: Laceration Laceration 1: Site: other (Abdominal area near her sutures) Size (cm): 0.5 Description: linear Depth: simple, single layer Local Anesthetic: lidocaine 1% Amount of anesthesia used (mL): 4 Pre-repair: irrigated extensively Skin layer closed with: nylon Suture size (cm): 4-0 Number of sutures: 1 Technique: horizontal mattress Wound / Laceration MDM Narrative MDM Narrative:: 24-year-old female with no known medical history presents to the emergency room with a chief complaint of bleeding from her incision site. Patient had a done on November 21, 2024. Patient is hemodynamically stable and in no apparent distress Physical examination shows 0.5 cm area on her sutures that is bleeding. The area is not erythemic it is not warm to the touch there is no pus drainage there are no signs of infection. The area still visibly bleeding. The laceration was from her sutures The mechanism of injury was a dehiscence sutures Sensation is intact. There is full ROM. There is no exposed tendons. No foreign bodies. Lidocaine 1% was used for anesthesia. The wound was irrigated extensively with normal saline. 1 sutures were placed. A dressing was placed. There were no complications. Patient was educated to keep the area clean and dry for 24 hours, then clean daily with soap and water. Patient was educated to return for any signs of infection including swelling pain redness pus or fever and to make an appointment with primary care provider in 48 hours. Patient was educated to follow up with primary or return to emergency room for suture removal in the next 7-10 days. Patient data External records reviewed:: [facility] previous records Clinical information provided by:: patient Social determinants that could affect healthcare access:: none Patient has the following chronic illnesses:: No chronic illness How is presenting disease/condition affected by chronic disease/condition?: no chronic disease Evaluation data The following diagnostics were reviewed and interpreted by me:: lab results and radiology exam(s) Lab and/or radiology exams considered but not ordered:: Labs and radiology exams considered in order Interpretation Summary: N/A Medications / Prescriptions Medications or Prescriptions considered but not ordered:: Medication given Medication administrations:: Medication Administration History Discontinued Medications Lidocaine HCl (Lidocaine Hcl 1% 20 Ml Vial) 20 ml INFL X1 ONE Stop: 12/01/24 09:55 Medication given Consultations Consultation(s) initiated? (list below): No Diagnosis Wound Differential Diagnosis: laceration, abrasion and avulsion of skin Most likely diagnosis given after review of the tests above:: Laceration Admission Indicated Admission indicated?: not indicated Admission Request Was there a request for admission?: No Disposition Plan Disposition Plan: Discharge Discharge Attestation Discharge Attestation: The patient and all family members were given an opportunity to ask questions and understood the discharge instructions. Discharge instructions specifically effects, indications for sooner follow up or return to the emergency department, and the expected course of current diagnosis. Patient condition: Stable Discharge Plan Plan Patient Disposition: HOME (Self Care) Discharge Disposition comment: Stable Prescriptions/Referrals Prescriptions/Med Rec: New cephalexin 500 mg capsule 500 mg PO BID 7 Days Qty: 14 0RF No Action Vitamin 27 mg iron- 800 mcg tablet 1 tab PO QDAY hydrocodone-acetaminophen 5-325 mg tablet 1 tab PO Q6H MDD 4 PRN (Reason: pain) Qty: 20 0RF ibuprofen 800 mg tablet 800 mg PO Q6H PRN (Reason: pain) Qty: 30 0RF Problem List Clinical Impression: Dehiscence of section wound, Patient/Caregiver Discharge Instructions Additional Instructions: Please follow-up with your [facility] in the next 24 to 48 hours A stitch was placed to close and approximate the wound. You can return in 7 to 10 days for suture removal. Antibiotics were sent to your pharmacy please pick them up and take them as indicated. Please keep the area clean and dry for the next 24 to 48 hours afterwards to get cleaning with soap and water For any evidence of worsening signs or symptoms return to the emergency room immediately Print Language: Sudanese Stand Alone Forms: [employer] Award Info., Work/School Release, Patient Portal Info Letter PA/DAMAGE ADJUSTER Supervising Physician PA/DAMAGE ADJUSTER Supervising Physician: Dr. Dunham
== END 2024-12-01 10:02 | disposition home or self-care (01) ==
LOC: SERX 10:04
PROVIDERS: Emergency Provider Family Medicine
DX: O90.0 Disruption of cesarean delivery wound (principal)
CPT/HCPCS: 12002; 99283